=== PATIENT | male | born 1955 | race Hispanic/Latino ===

== ENCOUNTER 2017-01-25 13:37 | Emergency (ER) | payer OTHER, BC ==
[2017-01-25 13:45] VITALS: BP 137/97; PULSE 93; RESP 20; TEMP 98.3; O2SAT 97
--- NOTE | 2017-01-25 14:02 | ED PDOC ---
HPI: General Adult Time Seen by Provider: 01/25/17 13:47 Chief Complaint (Nursing): Trauma History Per: Patient Additional Complaint(s): Pt. states earlier today while at work he was attempting to grab onto a firetruck that was not in motion. He accidentally missed and fell backwards striking the back of his head against the pavement. Pt. states he was initially "dizzy" after hitting his head but did not lose consciousness. Also reports noticing afterwards that he had b/l jaw pain which was not present prior to the fall. Denies trauma to face, LOC, N/V, previous TBI, neck pain, numbness, tingling, other injury. Past Medical History Reviewed: Historical Data, Nursing Documentation, Vital Signs Vital Signs: Last Vital Signs Temp 98.3 F 01/25/17 13:42 Pulse 93 H 01/25/17 13:42 Resp 20 01/25/17 13:42 BP 137/97 H 01/25/17 13:42 Pulse Ox 97 01/25/17 15:24 - Medical History PMH: Hypercholesterolemia - Family History Family History: States: No Known Family Hx - Immunization History Hx Tetanus Toxoid Vaccination: Yes ("4 years ago") - Allergies Allergies/Adverse Reactions: Allergies Allergy/AdvReac Type Severity Reaction Status Date / Time No Known Allergies Allergy Verified 01/25/17 13:42 Review of Systems ROS Statement: Except As Marked, All Systems Reviewed And Found Negative Physical Exam - Physical Exam Appears: Positive for: Well, Non-toxic, No Acute Distress Head Exam: Negative for: ATRAUMATIC, NORMAL INSPECTION, NORMOCEPHALIC ( superficial abrasion on occipital scalp without active bleeding but has minimal edema) Skin: Positive for: Normal Color, Warm. Negative for: Rash Eye Exam: Positive for: EOMI, Normal appearance, PERRL ENT: Positive for: Normal ENT Inspection, TM Is/Are (no hemotympanum b/l), Other (no facial or dentition swelling or tenderness; FROM actively of TMJ; no malocclusion) Neck: Positive for: Normal, Painless ROM Back: Positive for: Normal Inspection. Negative for: L CVA Tenderness, R CVA Tenderness, Vertebral Tenderness (including cervical spine) Extremity: Positive for: Normal ROM Neurologic/Psych: Positive for: Alert, Oriented. Negative for: Aphasia, Facial Droop - ECG O2 Sat by Pulse Oximetry: 97 - Progress ED Course And Treament: Wound cleansed and dressed. CT head w/o contrast: negative. Disposition - Clinical Impression Clinical Impression: Head injury, Abrasion - Patient ED Disposition Is Patient to be Admitted: No - Disposition Disposition: Routine/Home Disposition Time: 15:23 Condition: STABLE Additional Instructions: Follow up with your PMD for further evaluation. Return to ED immediately for any concerns or questions. Instructions: Head Injury (ED) Print Language: MOROCCAN
--- NOTE | 2017-01-25 15:04 | CT ---
PROCEDURE: CT HEAD WITHOUT CONTRAST. HISTORY: trauma COMPARISON: None available. TECHNIQUE: Axial computed tomography images were obtained through the head/brain without intravenous contrast. Radiation dose: Total exam DLP = 873.05 mGy-cm. This CT exam was performed using one or more of the following dose reduction techniques: Automated exposure control, adjustment of the mA and/or kV according to patient size, and/or use of iterative reconstruction technique. FINDINGS: HEMORRHAGE: No intracranial hemorrhage. BRAIN: No mass effect or edema. No atrophy or chronic microvascular ischemic changes. VENTRICLES: Unremarkable. No hydrocephalus. CALVARIUM: Unremarkable. PARANASAL SINUSES: Unremarkable as visualized. No significant inflammatory changes. MASTOID AIR CELLS: Unremarkable as visualized. No inflammatory changes. OTHER FINDINGS: None. IMPRESSION: Normal CT of the Head. No intracranial hemorrhage.
== END 2017-01-25 15:55 | disposition home or self-care (01) ==
LOC: H.ER 13:37
DX: S09.90XA Unspecified injury of head, initial encounter (principal); W19.XXXA Unspecified fall, initial encounter; Y99.0 Civilian activity done for income or pay